=== PATIENT | male | born 1980 | race Two or more races ===

== ENCOUNTER 2017-06-06 18:23 | Emergency (ER) | payer SELFPAY ==
[~2017-06-06] VITALS: Ht 177.8 cm; Wt 86.2 kg
[~2017-06-06 18:23] MED LIST: OXYC-327 PO
[2017-06-06 19:06] VITALS: BP 134/86
[2017-06-06] MEDS ORDERED: HYDR25TA PO (19:16)
[2017-06-06] MEDS ORDERED: TRIA15OI TP (19:16)
[2017-06-06] MEDS ORDERED: PRED-220 PO (19:16)
--- NOTE | 2017-06-06 19:16 | PHYS DOC ---
Past Medical History Past Medical History: Other Additional Past Medical Histor: chrons Past Surgical History: Other Additional Past Surgical Histo: colon resection Alcohol Use: Occasionally Drug Use: None Adult General Chief Complaint Chief Complaint: SKIN RASH/ABSCESS HPI HPI Patient is a 36 year old male who presents with poison ashleigh rash on his face neck and bilateral upper extremity that began 3 days ago. Patient states he has tried Benadryl and calamine lotion with no relief. Review of Systems Review of Systems Constitutional: Denies fever or chills [] Eyes: Denies change in visual acuity, redness, or eye pain [] Musculoskeletal: Denies back pain or joint pain [] Integument: rash Neurologic: Denies headache, focal weakness or sensory changes [] Allergies Allergies Allergies Coded Allergies Type Severity Reaction Last Updated Verified Iodinated Contrast- Oral and IV Dye Allergy Unknown 07/16/15 No Physical Exam Physical Exam Constitutional: Well developed, well nourished, no acute distress, non-toxic appearance. [] Skin: Patient has mild facial swelling and erythema, mildly erythematosus macular rash to bilateral upper extremities and neck. Back: No tenderness, no CVA tenderness. [] Extremities: No tenderness, no cyanosis, no clubbing, ROM intact, no edema. [] Neurologic: Alert and oriented X 3, normal motor function, normal sensory function, no focal deficits noted. [] Psychologic: Affect normal, judgement normal, mood normal. [] EKG EKG [] Radiology/Procedures Radiology/Procedures [] Course & Med Decision Making Course & Med Decision Making Pertinent Labs and Imaging studies reviewed. (See chart for details) Patient has contact dermatitis rash due to poison ashleigh. Discharged with tapered dose of prednisone, triamcinolone cream, Atarax, Benadryl. Follow-Up with Primary Care Doctor in 1-2 Weeks. Dragon Disclaimer Dragon Disclaimer This electronic medical record was generated, in whole or in part, using a voice recognition dictation system. Departure Departure Impression: Primary Impression: Contact dermatitis due to poison ashleigh Disposition: HOME, SELF-CARE Condition: STABLE Referrals: NO PCP (PCP) Follow-up with your doctor in 1-2 weeks Patient Instructions: Poison Ashleigh, [id number] Additional Instructions: You were seen for contact dermatitis rash due to poison ashleigh. Use the prescribed medicines as ordered. Follow-up with your doctor in the next 1-2 weeks. Scripts Triamcinolone Acetonide (TRIAMCINOLONE ACETONIDE 0.1% OINT) 15 Gm Oint...g. 1 ALIZA TP BID for WOUND CARE, #1 TUBE Prov: JORGE SOTOMAYOR APRN 06/06/17 Prednisone (PREDNISONE) 10 Mg Tablet 10 MG PO UD for PREDNISONE TAPER, #39 TAB 0 Refills Take 3 tablets by mouth twice a day for 3 days, then take 2 tablets by mouth twice a day for 3 days, then take 1 tablet by mouth twice a day for 3 days, then take 1 tablet by mouth daily x 3 days, then stop. Prov: JORGE SOTOMAYOR APRN 06/06/17 Hydroxyzine Hcl (HYDROXYZINE HCL) 25 Mg Tablet 1 TAB PO TID, #30 TAB Prov: JORGE SOTOMAYOR APRN 06/06/17 JORGE SOTOMAYOR APRN Jun 06, 2017 19:16
== END 2017-06-06 19:26 | disposition home or self-care (01) ==
LOC: ER 18:23
DX: L23.7 Allergic contact dermatitis due to plants, except food (principal); K50.90 Crohn's disease, unspecified, without complications
CPT/HCPCS: 99283